=== PATIENT | female | born 1990 | race Two or more races ===

== ENCOUNTER 2022-08-09 01:41 | Emergency (ER) | payer MEDICAID, OTHER ==
[~2022-08-09] VITALS: Ht 165.1 cm; Wt 65.8 kg
[2022-08-09 02:30] VITALS: BP 131/87
== END 2022-08-09 02:30 ==
LOC: ER 01:41
DX: T40.411A Poisoning by fentanyl or fentanyl analogs, accidental (unintentional), initial encounter (principal); Y92.89 Other specified places as the place of occurrence of the external cause
CPT/HCPCS: 71045